=== PATIENT | female | born 1960 | race Caucasian/White ===

== ENCOUNTER 2020-03-21 07:52 | Day surgery (SDC) | payer MEDICARE, MEDICAID ==
[~2020-03-21 07:52] MED LIST: PROPOFOL INJ 200 MG/20 ML VIAL IV ONE
--- NOTE | 2020-03-21 09:15 | Operative Report ---
Operative Report DATE OF SURGERY: 03/21/20 Operative Report: The risks benefits and alternatives of the procedure explained to the patient in detail and informed consent is obtained.A GIF Olympus video scope was inserted into the patient's mouth and hypopharynx, the esophagus is identified intubated and insufflated ,the scope was then advanced through the esophagus stomach and duodenum ,retroflexion maneuver is done ,the esophagus stomach and first and second portions of the duodenum examined PREOPERATIVE DIAGNOSIS: Dysphagia OPERATION: EGD with biopsy SURGEON: KATHERINE JESSICA ANESTHESIA: LMAC TISSUE REMOVED OR ALTERED: As noted above COMPLICATIONS: None. ESTIMATED BLOOD LOSS: None. INTRAOPERATIVE FINDINGS: As noted above. PROCEDURE: Patient tolerated the procedure well. No immediate postprocedure complications are noted. Patient is discharged in good condition. Discharge date 03/21/2020. Discharge diet: Regular. Discharge activity: Regular. 2 to 3-week follow-up to discuss findings and to see if Her symptoms have improved. We will wait on the pathology.
[2020-03-21 10:11] VITALS: BP 119/69
== END 2020-03-21 10:30 | disposition home or self-care (01) ==
LOC: END 07:52
PROVIDERS: ATTEND Internal Medicine Gastroenterology
DX: K29.50 Unspecified chronic gastritis without bleeding (principal); K21.9 Gastro-esophageal reflux disease without esophagitis; F17.210 Nicotine dependence, cigarettes, uncomplicated; I10 Essential (primary) hypertension; Z79.899 Other long term (current) drug therapy; Z03.818 Encounter for observation for suspected exposure to other biological agents ruled out; Z86.73 Personal history of transient ischemic attack (TIA), and cerebral infarction without residual deficits
CPT/HCPCS: 43239; 82962; 88305 ×2; 00731; U0003; J2704; C9803; 731; 87635

== ENCOUNTER 2020-06-13 18:10 | Emergency (ER) | payer MEDICARE, MEDICAID | END 2020-06-13 18:59 | disposition left against medical advice (07) | LOC: ER 18:10 | DX: Z53.21 Procedure and treatment not carried out due to patient leaving prior to being seen by health care provider (principal) ==